=== PATIENT | female | born 1970 | race Caucasian/White ===

== ENCOUNTER → 2020-06-28 15:24 | Outpatient (BNVA) | payer OTHER, SELFPAY | PROVIDERS: Visit Provider Physician Assistant ==

== ENCOUNTER 2021-12-19 09:41 | Outpatient (REF) | payer SELFPAY ==
--- NOTE | 2021-12-21 08:19 | MHC.AU.HFU ---
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 She has a sharp bend to her canals. The MP receivers seem to be too wide and are difficult to get around the first bend. Replaced with size 1LP receivers, which are a little smaller. Patient reported the LP receivers feel better and are able to get around the bend. In the software, programming was updated to reflect the LP receivers. Re-ran feedback calibration. At patient request, overall gain raised by 3 steps. Patient was pleased with the changes. Recommendations: Hearing instrument follow-up or maintenance as needed. Diagnosis Code(s): Primary Diagnosis: H90.3 Bilateral Sensorineural Hearing Loss Signature: Provider: Albaro Sims, CCC-A
== END 2021-12-19 09:42 | disposition home or self-care (01) ==
LOC: HO.HAP 09:41
DX: Z13.89 Encounter for screening for other disorder (principal)